=== PATIENT | male | born 1970 | race Caucasian/White ===

== ENCOUNTER 2017-08-14 09:35 | Day surgery (SDC) | payer OTHER ==
[~2017-08-14] VITALS: Ht 190.5 cm; Wt 81.5 kg
[2017-08-14 10:07] VITALS: Ht 190.5 cm; Wt 81.5 kg
[2017-08-14] MEDS ORDERED: PROPOFOL 60 ML ONE (10:33)
[2017-08-14] MEDS ORDERED: PROPOFOL 20 ML ONE (11:37)
--- NOTE | 2017-08-14 11:50 | OPPN ---
Date/Time of Note Date/Time of Note DATE: 08/14/17 TIME: 11:42 Proc Note GI Procedure Date 08/14/17 Pre-procedure Diagnosis gerd r/o barretts rectal bleeding Post-procedure Diagnosis gered thick fold gej gerd gastritis diverticulosis hemorrhoids non sp erythema desg coln Procedure Performed: Endoscopy Surgeon see signature line [employer] T[employer] none Tourniquet Time none EBL none Transfusion required none Biopsy 1: gastric esophageal and gej bx Grafts/Implants none Tubes/Drains none Complication(s) none Pt Condition post procedure: stable Indications: lower GI bleed, reflux Sx despite therapy Operative\Procedure Findings egd colonoscopy gerd gastritis thick fold GEJ colonoscopy showed prob mild hemorrhoids colon bx done. from non sp mild C U C Procedure Description egd gerd colonoscopy diverticulsis hemorrhoids non sp mild erythema desg colon bx done. see dictation SHIRA VICENTE MD Aug 14, 2017 11:50
[2017-08-14 12:03] VITALS: BP 127/94; RESP 14
--- NOTE | 2017-08-15 09:09 | GILP ---
DATE OF PROCEDURE: PROCEDURE: Esophagogastroduodenoscopy. PREOPERATIVE DIAGNOSIS: Patient presenting with history of chronic heartburn, rule out esophagitis, rule out peptic ulcer disease. POSTOPERATIVE DIAGNOSES: 1. Diffuse mild to moderate degree of gastritis. 2. Thickening of the fold noted in the GE junction. 3. Diffuse patchy esophagitis noted. DESCRIPTION OF PROCEDURE: After informed written consent was obtained, the patient was asked to lie on the left lateral side. Intravenous anesthesia was given by the anesthesiologist, Dr. Kruse. When the patient became somnolent, the Olympus video upper endoscope was introduced into the orophar ynx, then into the esophagus. Esophagus showed evidence of diffuse area of erythema in a milder fas hion. Some of them looked like linear furrows but they did not remain so when the inflation was don e with the air. Thickening of the fold was noted in the GE junction. Multiple biopsies were obtained. Stomach was examined which showed evidence of multiple areas of erythema including linear areas of erythema in t he antrum. Biopsies were obtained from the antrum, the lesser curvature and the fundus to rule out H. pylori infection. The mucosa of the duodenum appeared normal up to the end of the third portion. Scope at this time was withdrawn. No additional abnormalities detected and the procedure was term inated. PLAN: Recommend proton pump inhibitor therapy. Wait for the pathology report and also recommend st arting omeprazole 40 mg a day. Dictated By: SHIRA LOVELL/BROWN Conf#: [id number] DID#: [id number] CC: LAI ALBA M.D.;*End*
--- NOTE | 2017-08-15 09:42 | GILP ---
DATE OF PROCEDURE: PROCEDURE: Colonoscopy. PREOPERATIVE DIAGNOSES: 1. History of rectal bleeding. 2. Rule out colorectal neoplasm. 3. Arteriovenous malformation. 4. Diverticulosis. 5. Hemorrhoids. POSTOPERATIVE DIAGNOSES: 1. A moderate degree of diverticulosis. 2. Moderate degree of internal and external hemorrhoids. DESCRIPTION OF PROCEDURE: After informed written consent was obtained, the patient was asked to lie on the left lateral side. Intravenous anesthesia was given by anesthesiologist, Dr. Burton. When th e patient became somnolent, the Olympus video colonoscope was introduced into the rectum and scope w as advanced all the way to the cecum. Moderate degree of diverticulosis was noted in the descending colon and also a few diverticula scattered along the rest of the colon. Nonspecific mild pointed a reas of erythema noted in the area of the descending colon near the diverticulosis, significance not very clear. Random biopsies were obtained from the different sites of the colon. At this time col on was examined all the way up to the cecum. No additional abnormalities detected and then the scop e at this time was withdrawn and the procedure was terminated. PLAN: Recommend wait for the pathology report. Dictated By: SHIRA LOVELL/BROWN Conf#: [id number] DID#: [id number] CC: LAI ALBA M.D.;*[facility]*
== END 2017-08-14 13:48 | disposition home or self-care (01) ==
LOC: GIL 09:35
PROVIDERS: ATTEND Internal Medicine Gastroenterology
DX: K22.10 Ulcer of esophagus without bleeding (principal); K29.70 Gastritis, unspecified, without bleeding; K57.30 Diverticulosis of large intestine without perforation or abscess without bleeding; K64.8 Other hemorrhoids; K64.4 Residual hemorrhoidal skin tags
CPT/HCPCS: 43239; 45380; 88305; 88312; 88313; Z7610